=== PATIENT | female | born 1985 | race Two or more races ===

== ENCOUNTER 2019-11-16 13:05 | Outpatient (CLI) | payer OTHER, SELFPAY ==
[2019-11-16 14:14] LABS: Basophils Percent Auto 0.4 % (0.2-1.2); Eosinophils Absolute Auto 0.1 K/mm3 (0-0.3); Eosinophils Percent Auto 1.9 % (0-4.4); Hemoglobin 7.1 g/dL (12.0-15.0); Immature Granulocyte Absolute 0.02 K/mm3 (0.00-0.031); Immature Granulocyte Percent A 0.3 % (0-0.5); Lymphocytes Absolute Auto 1.94 K/mm3 (0.9-3.2); Lymphocytes Percent Auto 25.7 % (18.3-44.2); Mean Corpuscular HGB Conc 26.3 g/dl (32-36); Mean Corpuscular Hemoglobin 17.3 pg (26-34); Mean Corpuscular Volume 65.9 fl (80-100); Mean Platelet Volume 9.6 fl (7.4-10.4); Monocytes Absolute Auto 0.5 K/mm3 (0.1-0.6); Monocytes Percent Auto 6.6 % (2.6-8.5); Neutrophils Absolute Auto 4.9 K/mm3 (1.3-6.7); Neutrophils Percent Auto 65.1 % (45.5-73.1); Platelet Count Result 408 k/mm3 (150-375); Red Cell Distribution Width 18.9 % (11.5-14.5); White Blood Count 7.5 K/mm3 (4.5-10.0)
[2019-11-16 14:23] LABS: Alanine Aminotransferase 10 U/L (4-35); Albumin Level 4.2 g/dL (3.5-5.1); Alkaline Phosphatase 43 U/L (38-126); Aspartate Amino Transferase 17 U/L (14-36); Bilirubin,Total 0.3 mg/dL (0.2-1.3); Blood Urea Nitrogen 3 mg/dL (7-17); Calcium 8.8 mg/dL (8.4-10.2); Carbon Dioxide 24 mmol/L (22-30); Chloride 104 mmol/L (98-107); Cholesterol 141 mg/dL (0-200); Estimated Glomerular Filt Rate > 60; Glucose 85 mg/dL (65-105); HDL Direct 66 mg/dL; Potassium 3.9 mmol/L (3.4-5.0); Sodium 141 mmol/L (137-145); Triglycerides 45 mg/dL (<150)
[2019-11-16 14:31] LABS: LDL Cholesterol Direct 63 mg/dL
[2019-11-16 14:34] LABS: Anisocytosis 1+ (NORMAL); Hypochromasia 1+ (NORMAL); Platelet Estimate Adequate (Adequate)
== END 2019-11-16 13:06 | disposition home or self-care (01) ==
DX: Z00.00 Encounter for general adult medical examination without abnormal findings (principal); Z79.899 Other long term (current) drug therapy
CPT/HCPCS: 36415; 80053; 80061; 84443; 85025

== ENCOUNTER 2019-11-18 17:45 | Emergency (ER) | payer OTHER, SELFPAY ==
[2019-11-18 18:01] VITALS: BP 115/70; PULSE 99; RESP 18; TEMP 36.6; O2SAT 100
[2019-11-18] MEDS: IBUPROFEN 600 MG TABLET PO (18:40)
--- NOTE | 2019-11-18 18:55 | ED.GENADULT ---
HPI - General Adult General Chief complaint: Skin/Abscess/Foreign Body Stated complaint: lump under l arm Time Seen by Provider: 11/18/19 18:30 Source: patient Mode of arrival: ambulatory Limitations: no limitations History of Present Illness HPI narrative: Patient is a 34-year-old female who presents to emergency department for evaluation of abscess to the left arm. For the last 10 days was seen Wednesday started on Bactrim notes that is continued to increase in size patient notes moderate aching pain worse with palpation. Patient denies fever chills nausea vomiting or similar occurrence or any radicular symptoms Related Data Home Medications Medication Instructions Recorded Confirmed sulfamethoxazole-trimethoprim 11/18/19 Allergies Allergy/AdvReac Type Severity Reaction Status Date / Time No Known Allergies Allergy Verified 11/18/19 18:05 Review of Systems Review of Systems: Narrative: CONSTITUTIONAL: Denies fever, chills, or sweats. ENT: Denies rhinorrhea, congestion, sore throat, or otalgia. RESPIRATORY: Denies cough or dyspnea. GASTROINTESTINAL: Denies nausea, vomiting SKIN: Positive for abscess MUSCULOSKELETAL: Denies joint pain, or myalgia. [facility] Social History Social History (Updated 11/18/19 @ 18:56 by Misael Trevizo PA-C) Smoking status: Never smoker Gender identity (if verbalized by the patient): Female Exam Narrative: Exam Narrative: GENERAL: Well-appearing, well-nourished, and in no acute distress. HEAD: Normocephalic, atraumatic. EYES: PERRLA and EOMI. ENT: Nares clear, no rhinorrhea or epistaxis. Mucous membranes moist. EXTREMITIES: Normal range of motion. No edema. SKIN: Warm, dry, no rash. 2 x 2 and half centimeter skin abscess to the left axilla without any cellulitic changes NEURO: No focal deficits. Alert and oriented x3. Cranial nerves II through XII grossly intact. Neurovascularly intact PSYCH: Normal mood and affect. Course Course Emergency Course: Patient in the room in no distress aware of case findings treatment plan and diagnosis Vital Signs Vital signs: Vital Signs Temperature 97.9 F 11/18/19 18:01 Pulse Rate 99 11/18/19 18:01 Respiratory Rate 18 11/18/19 18:01 Blood Pressure 115/70 11/18/19 18:01 Pulse Oximetry 100 11/18/19 18:01 Temperature 97.9 F 11/18/19 18:01 Pulse Rate 99 11/18/19 18:01 Respiratory Rate 18 11/18/19 18:01 Blood Pressure 115/70 11/18/19 18:01 Pulse Oximetry 100 11/18/19 18:01 Procedures Abscess I/D upper extremity: Date of Incision: 11/18/19 Time of Incision: 18:57 Side (if applicable): left Sedation/analgesia: none Local Anesthetic: lidocaine 1% Technique: incised with #11 blade Irrigation: No Packing used?: iodoform I&D Results: Pus Abcess I&D Additional Comments: Antibiotic ointment 4 x 4 placed post procedure Medical Decision Making MDM Narrative Medical decision making narrative: Patient had I&D in the emergency department resting comfortably no complications felt appropriate for outpatient reevaluation Vital Signs Vital Signs: Vital Signs Temperature 97.9 F 11/18/19 18:01 Pulse Rate 99 11/18/19 18:01 Respiratory Rate 18 11/18/19 18:01 Blood Pressure 115/70 11/18/19 18:01 Pulse Oximetry 100 11/18/19 18:01 Temperature 97.9 F 11/18/19 18:01 Pulse Rate 99 11/18/19 18:01 Respiratory Rate 18 11/18/19 18:01 Blood Pressure 115/70 11/18/19 18:01 Pulse Oximetry 100 11/18/19 18:01 Discharge Plan Discharge Clinical Impression: Abscess of skin or subcutaneous tissue Patient Disposition: Home, Self-Care Condition: Stable Instructions: Antibiotic Form, Abscess (ED) Additional Instructions: Follow up with primary care in the next 2-3 days for re-evaluation and packing removal if placed take antibiotics as directed. return if symptoms worsen or concerns, any increase in redness sw
== END 2019-11-18 18:45 | disposition home or self-care (01) ==
PROVIDERS: Emergency Provider Emergency Medicine
DX: L02.414 Cutaneous abscess of left upper limb (principal)
CPT/HCPCS: 10061; 99282; A9270

== ENCOUNTER 2020-08-05 14:11 | Emergency (ER) | payer OTHER, SELFPAY ==
--- NOTE | 2020-08-05 14:18 | ED.GENADULT ---
HPI - General Adult General Chief complaint: Extremity Injury, Lower Stated complaint: Right leg Pain Time Seen by Provider: 08/05/20 14:18 Source: patient Mode of arrival: ambulatory Limitations: no limitations History of Present Illness HPI narrative: 34-year-old female patient presents to the [facility] with complaints of right sided hip pain that radiates to the right lower extremity. Patient states she has had this pain for the past 4 days. Patient states she has taken Tylenol every once a while for the pain. Patient states that the pain is worse when standing for long periods of time. 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 Patient states that the pain is better when sitting and lying. Patient denies any numbness or tingling down the legs and denies any loss of bowel or bladder control. Denies any specific injury to the hip or leg that she is aware of. Patient also complaining of pain to the right upper eyelid for the past 2 days. Patient states it has swollen at times. Related Data Allergies Allergy/AdvReac Type Severity Reaction Status Date / Time No Known Allergies Allergy Verified 08/05/20 14:35 Review of Systems Review of Systems: Narrative: CONSTITUTIONAL: Denies fever, chills, or sweats. EYES: Denies visual changes, redness, or discharge. Positive right upper eyelid pain x2 days ENT: Denies rhinorrhea, congestion, sore throat, or otalgia. CARDIOVASCULAR: Denies chest pain, palpitations, or edema. RESPIRATORY: Denies cough or dyspnea. GASTROINTESTINAL: Denies abdominal pain, nausea, vomiting, or diarrhea. GENITOURINARY: Denies dysuria or hematuria. SKIN: Denies rash or itching. MUSCULOSKELETAL: Denies back pain, joint pain, or myalgia. Positive right hip pain that radiates down to the right leg. NEUROLOGIC: Denies headache, numbness, or weakness. PSYCHIATRIC: Denies anxiety or depression. ON LICENSE OF [facility] Surgical History Surgical History (Updated 08/05/20 @ 14:18 by AYAAN Virgen) Delivery by section Social History Social History Smoking status: Never smoker Gender identity (if verbalized by the patient): Female Comments At the time of my signature I agree with nursing past medical history, surgical, social, and family history. There is no relevant family history pertinent to the presenting complaint. Exam Narrative: Exam Narrative: GENERAL: Well-appearing, well-nourished, and in no acute distress. HEAD: Normocephalic, atraumatic. EYES: PERRLA and EOM intact without limitation or complaint of pain, no periorbital soft tissue swelling ,no erythema, warmth or tenderness noted, no obvious deformity. Patient does have slight swelling and tenderness noted to the right upper lid. On inversion of the lid there is an obvious stye noted. No crusting or swelling.no tearing or draining.No photophobia. No nystagmus No FB. Corneas grossly clear, no obvious FB or hyphens/hypopyon. No injection to sclera. Lids and lashes clear. ENT: Nares clear, no rhinorrhea or epistaxis. Mucous membranes moist. NECK: Supple. No lymphadenopathy CHEST: Clear to auscultation. No respiratory distress. HEART: Regular rate and rhythm. No murmur heard. Normal peripheral pulses. ABDOMEN: Soft, nontender, nondistended, normal active bowel sounds. EXTREMITIES: Patient is able to ambulate to treatment area without difficulty or assistance, pain, or limp. No surface trauma, ecchymosis. no erythema, warmth. No deformity or crepitus or obvious asymmetry of the affected leg compared to the other. No tenderness to palpation over symphysis pubis, ischial bone,iliac crest, trochanter, SI notch, buttocks, quadriceps, femoral triangle, inguinal ligament. No inguinal lymphadenopathy. ROM unlimited and without pain. Normal flexion to chest, extension, abduction and adduction. Distal motor and neurovascular status are intact. BACK: Patient is able to ambulate
[2020-08-05 14:20] VITALS: BP 110/57; PULSE 94; RESP 16; TEMP 36.7; O2SAT 100
== END 2020-08-05 15:01 | disposition home or self-care (01) ==
PROVIDERS: Emergency Provider Nurse Practitioner Family
DX: M54.41 Lumbago with sciatica, right side (principal); H00.021 Hordeolum internum right upper eyelid
CPT/HCPCS: 99213; G0463